=== PATIENT | male | born 1975 | race Caucasian/White ===

== ENCOUNTER 2016-07-23 18:28 | Emergency (ER) | payer SELFPAY ==
--- NOTE | 2016-07-23 18:44 | EDM.PDOC ---
ED HPI Behavioral Health - General Stated Complaint: SUICIDAL Time Seen by Provider: 07/23/16 18:34 Source of Information: Reports: Patient, EMS Exam Limitations: Reports: No limitations - History of Present Illness INITIAL COMMENTS - FREE TEXT/NARRATIVE: Presents via EMS. EMS reports that the patient was found by his children lying facedown on the cement floor of the garage with the car running and the garage doors closed. The patient states that he was despondent over his leaving him 4 days ago. He states he was laying on the floor of the garage for approximately 20 minutes and during that time he did not lose consciousness and was totally asymptomatic. The patient room reports absolutely no symptoms upon admission to the emergency room and is alert, orientated and conversive. He states he has an alcohol abuse problem for many years and has never been treated. He states he drank about 8-9 beers today. He is otherwise healthy without chronic medical problems and takes no medications. Denies recreational drug use but has a 20+ pack year smoking hx. - Related Data Allergies Allergy/AdvReac Type Severity Reaction Status Date / Time No Known Allergies Allergy Verified 07/23/16 18:45 Home Medications: Home Meds . [No Known Home Meds] 07/23/16 [History] ED ROS GENERAL - Review of Systems Review Of Systems: ROS reveals no pertinent complaints other than HPI. ED EXAM, BEHAVIORAL HEALTH - Physical Exam Exam: See Below Exam Limited By: No limitations General Appearance: alert, no apparent distress Ears: normal external exam Nose: normal inspection Throat/Mouth: Normal inspection, Normal lips, Normal oropharynx Head: atraumatic, normocephalic Neck: normal inspection, full range of motion Respiratory/Chest: no respiratory distress, lungs clear, normal breath sounds Cardiovascular: normal peripheral pulses, regular rate, rhythm, no murmur GI/Abdominal: soft Back Exam: normal inspection Extremities: normal inspection Neurological: alert, normal mood/affect, normal cognition, no motor/sensory deficits, oriented x 3 Psychiatric: alert, normal cognition, oriented, flat affect, suicidal plan, suicidal thoughts Skin Exam: Warm, Dry, Intact, Normal color, Other (cool blochy skin on abdomen ) COURSE, BEHAVIORAL HEALTH COMP - Course Vital Signs: Last Vital Signs Temp 37.4 C 07/23/16 20:31 Pulse 88 07/23/16 20:31 Resp 17 07/23/16 20:31 BP 160/104 H 07/23/16 20:31 Pulse Ox 97 07/23/16 20:31 Orders, Labs, Meds: Active Orders 24 hr Category Date Time Status EKG Documentation Completion [RC] STAT Care 07/23/16 18:35 Active FREE T3 [REF] Stat Lab 07/23/16 18:58 Received Laboratory Tests 07/23/16 07/23/16 07/23/16 Range/Units 18:58 18:58 18:58 WBC 7.80 (4.0-11.0) K/uL RBC 5.42 (4.50-5.90) M/uL Hgb 16.6 (13.0-17.0) g/dL Hct 46.2 (38.0-50.0) % MCV 85.2 (80.0-98.0) fL MCH 30.6 (27.0-32.0) pg MCHC 35.9 (31.0-37.0) g/dL RDW Std Deviation 40.2 (28.0-62.0) fl RDW Coeff of Devin 13 (11.0-15.0) % Plt Count 219 (150-400) K/uL MPV 9.70 (7.40-12.00) fL Neut % (Auto) 55.8 (48.0-80.0) % Lymph % (Auto) 37.3 (16.0-40.0) % [place] % (Auto) 5.9 (0.0-15.0) % Eos % (Auto) 0.6 (0.0-7.0) % Baso % (Auto) 0.4 (0.0-1.5) % Neut # 4.4 (1.4-5.7) K/uL Lymph # 2.9 H (0.6-2.4) K/uL [place] # 0.5 (0.0-0.8) K/uL Eos # 0.1 (0.0-0.7) K/uL Baso # 0.0 (0.0-0.1) K/uL Nucleated RBC % 0.0 /100WBC Nucleated RBCs # 0 K/uL ABG Carboxyhemoglobin 12.0 (0-15) % Sodium 141 (136-146) mmol/L Potassium 4.3 (3.5-5.1) mmol/L Chloride 107 (98-110) mmol/L Carbon Dioxide 22 (21-31) mmol/L BUN 9 (6.0-23.0) mg/dL Creatinine 1.0 (0.6-1.5) mg/dL Est Cr Clr Drug Dosing 103.42 mL/min Estimated GFR (MDRD) > 60.0 ml/min Glucose 88 (60-110) mg/dL Calcium 8.8 (8.8-10.8) mg/dL Magnesium 1.8 (1.5-2.3) mEq/L Total Bilirubin 0.6 (0.1-1.5) mg/dL AST 29 (5-40) IU/L ALT 39 (8-54) IU/L Alkaline Phosphatase 41 (40-150) Total Protein 7.3 (6.0-8.0) g/dL Albumin 4.2 (3.5-5.0) g/dL Globulin 3.1 (2.0-3.5) g/dL Albumin/Globulin Ratio 1.4 (1.3-2.8) TSH 3rd Generation 1.73 (0.47-5.0) uIU/mL Urine Color Urine Appearance Urine pH (5.0-8.0) Ur Specific [place] (1.001-1.035) Urine Protein (NEGATIVE) mg/dL Urine Glucose (UA) (NEGATIVE) mg/dL Urine Ketones (NEGATIVE) mg/dL Urine Occult Blood (NEGATIVE) Urine Nitrite (NEGATIVE) Urine Bilirubin (NEGATIVE) Urine Urobilinogen (<2.0) EU/dL Ur Leukocyte Esterase (NEGATIVE) Urine RBC (0-2/HPF) Urine WBC (0-5/HPF) Ur Epithelial Cells (NONE-FEW) Urine Bacteria (NEGATIVE) Salicylates < 5.0 (0-20) mg/dL Urine Opiates Screen (NEGATIVE) Ur Oxycodone Screen (NEGATIVE) Urine Methadone Screen (NEGATIVE) Acetaminophen < 3.0 ug/mL Ur Barbiturates Screen (NEGATIVE) Ur Phencyclidine Scrn (NEGATIVE) Ur Amphetamine Screen (NEGATIVE) U Methamphetamines Scrn (NEGATIVE) U Benzodiazepines Scrn (NEGATIVE) U Cocaine Metab Screen (NEGATIVE) U Marijuana (THC) Screen (NEGATIVE) Ethyl Alcohol 130.8 mg/dL 07/23/16 07/23/16 Range/Units 19:25 19:25 WBC (4.0-11.0) K/uL RBC (4.50-5.90) M/uL Hgb (13.0-17.0) g/dL Hct (38.0-50.0) % MCV (80.0-98.0) fL MCH (27.0-32.0) pg MCHC (31.0-37.0) g/dL RDW Std Deviation (28.0-62.0) fl RDW Coeff of Devin (11.0-15.0) % Plt Count (150-400) K/uL MPV (7.40-12.00) fL Neut % (Auto) (48.0-80.0) % Lymph % (Auto) (16.0-40.0) % [place] % (Auto) (0.0-15.0) % Eos % (Auto) (0.0-7.0) % Baso % (Auto) (0.0-1.5) % Neut # (1.4-5.7) K/uL Lymph # (0.6-2.4) K/uL [place] # (0.0-0.8) K/uL Eos # (0.0-0.7) K/uL Baso # (0.0-0.1) K/uL Nucleated RBC % /100WBC Nucleated RBCs # K/uL ABG Carboxyhemoglobin (0-15) % Sodium (136-146) mmol/L Potassium (3.5-5.1) mmol/L Chloride (98-110) mmol/L Carbon Dioxide (21-31) mmol/L BUN (6.0-23.0) mg/dL Creatinine (0.6-1.5) mg/dL Est Cr Clr Drug Dosing mL/min Estimated GFR (MDRD) ml/min Glucose (60-110) mg/dL Calcium (8.8-10.8) mg/dL Magnesium (1.5-2.3) mEq/L Total Bilirubin (0.1-1.5) mg/dL AST (5-40) IU/L ALT (8-54) IU/L Alkaline Phosphatase (40-150) Total Protein (6.0-8.0) g/dL Albumin (3.5-5.0) g/dL Globulin (2.0-3.5) g/dL Albumin/Globulin Ratio (1.3-2.8) TSH 3rd Generation (0.47-5.0) uIU/mL Urine Color YELLOW Urine Appearance CLEAR Urine pH 5.5 (5.0-8.0) Ur Specific [place] <= 1.005 (1.001-1.035) Urine Protein NEGATIVE (NEGATIVE) mg/dL Urine Glucose (UA) NEGATIVE (NEGATIVE) mg/dL Urine Ketones NEGATIVE (NEGATIVE) mg/dL Urine Occult Blood NEGATIVE (NEGATIVE) Urine Nitrite NEGATIVE (NEGATIVE) Urine Bilirubin NEGATIVE (NEGATIVE) Urine Urobilinogen 0.2 (<2.0) EU/dL Ur Leukocyte Esterase NEGATIVE (NEGATIVE) Urine RBC 0-1 (0-2/HPF) Urine WBC 0-1 (0-5/HPF) Ur Epithelial Cells RARE (NONE-FEW) Urine Bacteria RARE (NEGATIVE) Salicylates (0-20) mg/dL Urine Opiates Screen NEGATIVE (NEGATIVE) Ur Oxycodone Screen NEGATIVE (NEGATIVE) Urine Methadone Screen NEGATIVE (NEGATIVE) Acetaminophen ug/mL Ur Barbiturates Screen NEGATIVE (NEGATIVE) Ur Phencyclidine Scrn NEGATIVE (NEGATIVE) Ur Amphetamine Screen NEGATIVE (NEGATIVE) U Methamphetamines Scrn NEGATIVE (NEGATIVE) U Benzodiazepines Scrn NEGATIVE (NEGATIVE) U Cocaine Metab Screen NEGATIVE (NEGATIVE) U Marijuana (THC) Screen NEGATIVE (NEGATIVE) Ethyl Alcohol mg/dL Re-Assessment/Re-Exam: I did going to update the patient on his lab results and so forth. At that time the patient asked me if it was a requirement that he be admitted for psychiatric evaluation. He said states that he never stated to anyone that he was suicidal and that he was merely working on his car in the garage. The [place] [employer] police officer in the room states however that when they arrived at the scene that all the doors of the garage door closed and that there had been blankets tucked into all the cracks under the doors. There were no tools lying around or any other evidence that he was working on cars. Discharge vs Psych Eval/Treatment:: 07/23/16 21:[address] Charles Snow, psychiatry, at [facility] in [facility]. Include patient history, ER course, lab results. He agrees to accept the patient to transfer Discussion with Dr. Lezama, emergency medicine at [facility] in [facility]. Included patient history ER course, lab results. We will send the patient by ground ambulance. Departure - Departure Time of Disposition: 21:06 Disposition: DC/Tfer to Psych Hosp/Unit 65 Condition: good Clinical Impression: Suicidal behavior Qualifiers: Attempted self-injury: with attempted self-injury Qualified Code(s): T14.91 - Suicide attempt - My Orders Last 24 Hours: My Active Orders 07/23/16 18:35 EKG Documentation Completion [RC] STAT 07/23/16 18:58 FREE T3 [REF] Stat - Assessment/Plan Last 24 Hours: My Active Orders 07/23/16 18:35 EKG Documentation Completion [RC] STAT 07/23/16 18:58 FREE T3 [REF] Stat
[2016-07-23 19:40] LABS: CHLORIDE,CL 107 mmol/L (98-110); SODIUM,NA 141 mmol/L (136-146)
[2016-07-23 19:44] LABS: ACETAMINOPHEN < 3.0 ug/mL
[2016-07-23 20:31] VITALS: BP 160/104
== END 2016-07-23 21:26 ==
LOC: MW.ED 18:28
DX: T14.91 Suicide attempt (principal)
CPT/HCPCS: 36415; 80053; 80305; 81001; 82375; 83735; 84443; 84481; 85025; 93005; 99285; G0480; 99283

== ENCOUNTER 2018-12-09 08:53 | Day surgery (SDC) | payer BC ==
[~2018-12-09 08:53] MED LIST: Lactated Ringers 1,000 ML IV SCH
[2018-12-09] MEDS ORDERED: Lidocaine 2% 5 ML SDV ONE (09:48)
[2018-12-09] MEDS ORDERED: fentaNYL 100 MCG/2 ML SDV ONE (09:49)
[2018-12-09] MEDS ORDERED: Propofol 200 MG/20 ML SDV ONE ×3 (09:49→10:52)
--- NOTE | 2018-12-09 09:50 | PCM.PREANE ---
Preanesthetic Assessment - Anesthesia/Transfusion/Family Hx Anesthesia History: No Prior Anesthesia Family History of Anesthesia Reaction: No Transfusion History: No Prior Transfusion(s) Intubation History: Unknown - Review of Systems General: No Symptoms Pulmonary: No Symptoms Cardiovascular: No Symptoms Gastrointestinal: Abdominal Pain Neurological: No Symptoms Other: Reports: None - Physical Assessment O2 Sat by Pulse Oximetry: 96 Respiratory Rate: 16 Vital Signs: Last Vital Signs Temp 36.5 C 12/09/18 09:05 Pulse 92 12/09/18 09:05 Resp 16 12/09/18 09:05 BP 133/89 12/09/18 09:05 Pulse Ox 96 12/09/18 09:05 Height: 5 ft 9 in Weight: 121.563 kg ASA Class: 2 Mental Status: Alert & Oriented x3 Airway Class: Mallampati = 2 Dentition: Reports: Normal Dentition (grinded teeth upper front (badly)) Thyro-Mental Finger Breadths: 3 Mouth Opening Finger Breadths: 3 ROM/Head Extension: Full Lungs: Clear to Auscultation, Normal Respiratory Effort - Allergies Allergies/Adverse Reactions: Allergies Allergy/AdvReac Type Severity Reaction Status Date / Time No Known Allergies Allergy Verified 12/04/18 10:19 - Blood Blood Available: No - Anesthesia Plan Pre-Op Medication Ordered: None - Acknowledgements Anesthesia Type Planned: MAC Pt an Appropriate Candidate for the Planned Anesthesia: Yes Alternatives and Risks of Anesthesia Discussed w Pt/Guardian: Yes Pt/Guardian Understands and Agrees with Anesthesia Plan: Yes PreAnesthesia Questionnaire - Past Health History Medical/Surgical History: Denies Medical/Surgical History HEENT History: Reports: None Cardiovascular History: Reports: Hypertension Other Cardiovascular History: HTN in the past, does not take any medications Respiratory History: Reports: None Gastrointestinal History: Reports: GERD, GI Bleed Genitourinary History: Reports: None Musculoskeletal History: Reports: Fracture Other Musculoskeletal History: staes he has had multiple fractures in the past Neurological History: Reports: Concussion Psychiatric History: Reports: None Endocrine/Metabolic History: Reports: Obesity/BMI 30+ (BMI 39.6) Hematologic History: Reports: None Immunologic History: Reports: None Oncologic (Cancer) History: Reports: None Dermatologic History: Reports: None - Past Surgical History Head Surgeries/Procedures: Reports: None HEENT Surgical History: Reports: None Cardiovascular Surgical History: Reports: None Respiratory Surgical History: Reports: None GI Surgical History: Reports: None Male Surgical History: Reports: None Endocrine Surgical History: Reports: None Neurological Surgical History: Reports: None Musculoskeletal Surgical History: Reports: None Oncologic Surgical History: Reports: None Dermatological Surgical History: Reports: None - SUBSTANCE USE Smoking Status *Q: Current Every Day Smoker Tobacco Use Within Last Twelve Months: Cigarettes (>1 ppd), Snuff/Dip Days Per Week of Alcohol Use: 4 - HOME MEDS Home Medications: Home Meds Calcium Carbonate [Tums] 1 tab.chew CHEW ASDIRECTED PRN 12/04/18 [History] Omeprazole 1 tab PO ASDIRECTED PRN 12/04/18 [History] - CURRENT (IN HOUSE) MEDS Current Meds: Current Medications Lactated Ringer's (Ringers, Lactated) 1,000 mls @ 125 mls/hr IV ASDIRECTED KENDRICK Last Admin: 12/09/18 09:33 Dose: 125 mls/hr
--- NOTE | 2018-12-09 11:21 | PCM.OPNOTE ---
- General Post-Op/Procedure Note Date of Surgery/Procedure: 12/09/18 Operative Procedure(s): egd w bx. colonoscopy w bx Findings: see dict [id number] Pre Op Diagnosis: bloating, abd pain, change in bowel habits Post-Op Diagnosis: Same Anesthesia Technique: Moderate Sedation Primary Surgeon: Thuan Palma Pathology: 1) egd bx 2) 1.1m when scope when went, aphthus ulcer structure bx Complications: None Condition: Good
[2018-12-09 11:45] VITALS: BP 142/96; PULSE 73
--- NOTE | 2018-12-09 12:28 | OR ---
SURGEON: Thuan Palma MD DATE OF PROCEDURE: 12/09/2018 PROCEDURES PERFORMED: Esophagogastroduodenoscopy with biopsy. Colonoscopy with biopsy. PREOPERATIVE DIAGNOSES: Bloating and abdominal pain and acid reflux. POSTOPERATIVE DIAGNOSES: Esophagogastroduodenoscopy diagnoses are gastritis and acid reflux and Schatzki ring. Colonoscopy diagnoses are unacceptable bowel prep and aphthous ulcer, lesion was tattooed. DESCRIPTION OF PROCEDURE: EGD: The patient was taken to the endoscopy room, and with the FINGERPRINT CLASSIFIER, Diprivan was administered. A well-lubricated EGD scope was gently inserted through the oropharynx, down the esophagus, passing through the gastroesophageal junction, into the stomach. The mucosa was examined upon the passage. Any etiology will be noted. Once in the stomach, we continued to advance to the distal antrum, passed through the pylorus into the second portion of the duodenum. Again, the mucosa was examined for any abnormality and etiology. The scope was then retrieved back to the stomach and then retroflexed to look at the fundus of the stomach. If a biopsy was indicated, we will biopsy the antrum, body, and gastroesophageal junction. The air will be sucked out while the scope is retrieved to reduce the patient's discomfort. The patient tolerated the procedure well. There were no intraoperative complications. Dr. Palma was present through the whole procedure. Prior to surgery, a time-out had been called, the patient identified, procedure identified and antibiotic administered. The patient was taken to the endoscopy room. A time out was called, patient identified, and procedure identified. Diprivan was then administrated. Patient went from awake to sleep, hearing doctor talking or door closing is normal. Perineum inspection and digital examination were then performed. A well- lubricated colonoscope was gently inserted through the rectum, advanced past the rectosigmoid junction, the descending colon, splenic flexure, transverse colon, hepatic flexure, ascending colon, arrived to the cecum. Cecum was identified as dictated in the finding. Then the scope was carefully withdrawn while attention was paid to the mucosal surface for any abnormality. Air will be sucked out during the scope withdrawal. At the rectum, retroflexed to examine any rectal diseases, fistula or hemorrhoids. During mucosal examination, abnormality or polyp was noted; picture taken and biopsy performed. Patient tolerated procedure well. There were no intraoperative complications, and Dr. Palma was present throughout the whole procedure. FINDINGS: EGD findings: 1. The patient is easily sedated with FINGERPRINT CLASSIFIER and Diprivan, the patient is soundly snoring. 2. Oropharynx and proximal esophagus are free of disease, stricture, or inflammation. Distal esophagus at distance of 35 shows significant salmon- colored change and a ring consistent with Schatzki ring. Stomach rugae are normal in appearance. Antrum has mild inflammation and couple of areas have some old blood, I mean petechiae, not really bleeding, such as a previous gastritis. Duodenum was grossly normal. Retroflexed look at the fundus of stomach and there is no hiatal hernia. Biopsy done at antrum, body, GE junction at 40 and sucked out the gas while scope pulling out. Colonoscopy findings: 1. The patient is easily sedated with FINGERPRINT CLASSIFIER and Diprivan, the patient is soundly snoring. 2. Bowel prep was unacceptable. Solid stool all the way from rectum to cecum. Over 50% of the mucosa was covered with plain solid stool. Cecum indicated by ileocecal fold, one-to-one indentation, appendiceal orifice, and light emittance. Mucosa examined upon scope pulling out with constant irrigation, still some of the solid stool just cannot be dispersed. There is an aphthous ulcer like appearance structure, pretty big, about the size, I would say close to about 5 to 6 mm. It is plain, flat, and then with some volcano crater appearance. It was biopsied and sent for pathology. The biopsy may not be able to the touch it as the biopsy forceps cannot really able to seem to grab the thing, but we biopsied the area, and the area was pinked 2 times on either side of the lesion. The lesion in fact is about 1 ring distal from the cecum. Again, this is an unacceptable bowel prep study, so a lot of disease is possibly covered by the solid stool. The patient does have internal hemorrhoids, no external hemorrhoids. No other disease observed. No polyp, inflammation, growth, AV malformation observed. Also remarked this is an unacceptable bowel prep because of solid stool. The patient would benefit from repeat colonoscopy with much more compliant bowel prep in about 6 months and depends on the pathology of the ulcer biopsy and also depends on if there is any clinical indication to an earlier colonoscopy. Also, I have put him on a PPI because of the gastritis, start on omeprazole 20 mg p.o. daily. ZAIN / DANIEL /[id number]
== END 2018-12-09 11:55 | disposition home or self-care (01) ==
LOC: MW.SDS 08:53
PROVIDERS: ATTEND Surgery
DX: K63.3 Ulcer of intestine (principal); K64.8 Other hemorrhoids; K21.0 Gastro-esophageal reflux disease with esophagitis; K22.2 Esophageal obstruction; K31.89 Other diseases of stomach and duodenum; I10 Essential (primary) hypertension; F17.210 Nicotine dependence, cigarettes, uncomplicated; Z79.899 Other long term (current) drug therapy
CPT/HCPCS: 43239; 45380; 45381; J2001; J2704; J3010; J7120; 88305; 88312